=== PATIENT | male | born 1960 | race African-American/Black ===

== ENCOUNTER 2018-04-16 09:30 | Emergency (ER) | payer SELFPAY ==
--- NOTE | 2018-04-16 09:45 | ER Document Report ---
ED Medical Screen (RME) - General Chief Complaint: Flank Pain Stated Complaint: BACK PAIN Time Seen by Provider: 04/16/18 09:44 Mode of Arrival: Ambulatory Information source: Patient TRAVEL OUTSIDE OF THE [place] IN LAST 30 DAYS: No - HPI Patient complains to provider of: R flank pain Onset: Other - pt with c/o R flank pain for the past 4 days - Related Data Allergies/Adverse Reactions: No Known Allergies Allergy (Verified 04/16/18 09:44) Past Medical History Renal/ Medical History: Denies: Hx Peritoneal Dialysis Physical Exam - Vital signs Vitals: Temp Pulse Resp BP Pulse Ox 97.9 F 101 H 20 142/81 H 97 04/16/18 09:36 04/16/18 09:36 04/16/18 09:36 04/16/18 09:36 04/16/18 09:36 Course - Vital Signs Vital signs: Temp Pulse Resp BP Pulse Ox 97.9 F 101 H 20 142/81 H 97 04/16/18 09:36 04/16/18 09:36 04/16/18 09:36 04/16/18 09:36 04/16/18 09:36
--- NOTE | 2018-04-16 10:36 | RADIOLOGY REPORT (SQ) ---
EXAM DESCRIPTION: CT LTD RENAL STONE PROTOCOL ON COMPLETED DATE/TIME: 04/16/2018 10:21 am REASON FOR STUDY: R flank pain COMPARISON: None. TECHNIQUE: CT scan of the abdomen and pelvis performed without intravenous or oral contrast. Images reviewed with lung, soft tissue, and bone windows. Reconstructed coronal and sagittal MPR images revi ewed. All images stored on PACS. All CT scanners at this facility use dose modulation, iterative reconstruction, and/or weight based d osing when appropriate to reduce radiation dose to as low as reasonably achievable (ALARA). [facility]: Dose Right [facility]: CareDose [facility]: Dose Right [facility]: Teradose 4D [facility]: [employer] RADIATION DOSE: CT Rad equipment meets quality standard of care and radiation dose reduction techniq ues were employed. CTDIvol: 10.7 mGy. DLP: 540 mGy-cm.mGy. LIMITATIONS: None. FINDINGS: LOWER CHEST: No significant findings. No nodules or infiltrates. NON-CONTRASTED LIVER, SPLEEN, ADRENALS: Evaluation limited by lack of IV contrast. No identified sign ificant masses. PANCREAS: No masses. No peripancreatic inflammatory changes. GALLBLADDER: No identified stones by CT criteria. No inflammatory changes to suggest cholecystitis. RIGHT KIDNEY AND URETER: No suspicious masses. Assessment limited by lack of IV contrast. No signif icant calcifications. No hydronephrosis or hydroureter. LEFT KIDNEY AND URETER: No suspicious masses. Assessment limited by lack of IV contrast. No signifi cant calcifications. No hydronephrosis or hydroureter. AORTA AND RETROPERITONEUM: No aneurysm. No retroperitoneal masses or adenopathy. BOWEL AND PERITONEAL CAVITY: No obvious masses or inflammatory changes. No free fluid. APPENDIX: Normal. PELVIS, BLADDER, AND ABDOMINAL WALL:The urinary bladder is incompletely filled and therefore not well evaluated. No free fluid is seen in the pelvis. No masses. BONES: No significant findings. OTHER: No other significant finding. IMPRESSION: NO SIGNIFICANT OR ACUTE PROCESS IN THE ABDOMEN OR PELVIS. COMMENT: Quality ID # [id number]: Final reports with documentation of one or more dose reduction techniques (e.g., Automated exposure control, adjustment of the mA and/or kV according to patient size, use of iterative reconstruction technique) TECHNICAL DOCUMENTATION: JOB ID: [id number] [employer]- All Rights Reserved Reading location - IP/workstation name: [email or web address]
[2018-04-16 10:49] LABS: APPEARANCE,URINE SLIGHTLY-CLOUDY; BILIRUBIN,URINE NEGATIVE (NEGATIVE); COLOR,URINE YELLOW; GLUCOSE, URINE NEGATIVE (NEGATIVE); KETONES,URINE NEGATIVE (NEGATIVE); LEUKOCYTE ESTERASE,URINE NEGATIVE (NEGATIVE); NITRITE,URINE NEGATIVE (NEGATIVE); PROTEIN,URINE NEGATIVE (NEGATIVE); URINE SPECIFIC GRAVITY 1.019
[2018-04-16] MEDS ORDERED: CEFTRIAXONE INJ 250 MG VIAL IM ONE (11:17)
[2018-04-16] MEDS ORDERED: AZITHROMYCIN 250 MG TABLET PO ONE (11:17)
[2018-04-16] MEDS ORDERED: LIDOCAINE 1% INJ-PF (10 MG/ML) 30 ML SDV INJ ONE (11:17)
[2018-04-16] MEDS ORDERED: CYCLOBENZAPRINE HCL 10 MG TABLET PO ONE (11:18)
[2018-04-16] MEDS ORDERED: LIDOCAINE 5% (700 MG) TRANSDERMAL ADH..PATCH TP ONE (11:18)
--- NOTE | 2018-04-16 11:23 | ER Document Report ---
HPI - HPI Patient complains to provider of: Right flank pain Onset: Other - 4 days Onset/Duration: Persistent Quality of pain: Achy Pain Level: 4 Context: Patient presents complaining of four-day history of right flank pain. Patient denies any fever, nausea vomiting or diarrhea. Patient denies any urinary symptoms. Patient does report a recent new sexual partner and is concerned about the possibility of an STD and would like to be treated. Associated Symptoms: Other - Right flank pain. denies: Fever, Nausea, Vomiting Exacerbated by: Denies Relieved by: Denies Similar symptoms previously: No Recently seen / treated by doctor: No - ROS ROS below otherwise negative: Yes Systems Reviewed and Negative: Yes All other systems reviewed and negative - CONSTITUTIONAL Constitutional: DENIES: Fever, Chills - EENT EENT: DENIES: Sore Throat - CARDIOVASCULAR Cardiovascular: DENIES: Chest pain - RESPIRATORY Respiratory: DENIES: Trouble Breathing, Coughing - GASTROINTESTINAL Gastrointestinal: DENIES: Abdominal Pain, Nausea, Patient vomiting - URINARY Urinary: DENIES: Dysuria, Urgency - MUSCULOSKELETAL Musculoskeletal: REPORTS: Back Pain - DERM Skin Color: Normal Past Medical History - General Information source: Patient - Social History Smoking Status: Current Every Day Smoker Smoking Education Provided: Yes Frequency of alcohol use: None Drug Abuse: None Occupation: None Family History: Reviewed & Not Pertinent Patient has suicidal ideation: No Patient has homicidal ideation: No - Medical History Medical History: Negative Renal/ Medical History: Denies: Hx Peritoneal Dialysis Past Surgical History: Reports: Hx Orthopedic Surgery Vertical Provider Document - CONSTITUTIONAL Agree With Documented VS: Yes Exam Limitations: No Limitations General Appearance: WD/WN, No Apparent Distress - INFECTION CONTROL TRAVEL OUTSIDE OF THE [place] IN LAST 30 DAYS: No - HEENT HEENT: Atraumatic, Normocephalic - NECK Neck: Normal Inspection, Supple. negative: Lymphadenopathy-Left, Lymphadenopathy-Right - RESPIRATORY Respiratory: Breath Sounds Normal, No Respiratory Distress, Chest Non-Tender - CARDIOVASCULAR Cardiovascular: Regular Rate, Regular Rhythm, No Murmur - GI/ABDOMEN Gastrointestinal: Abdomen Soft, Abdomen Non-Tender, No Organomegaly, Normal Bowel Sounds. negative: Abdominal Guarding - BACK Back: CVA Tenderness-Right - MUSCULOSKELETAL/EXTREMETIES Musculoskeletal/Extremeties: MAEW, FROM - NEURO Level of Consciousness: Awake, Alert, Appropriate Motor/Sensory: No Motor Deficit - DERM Integumentary: Warm, Dry, No Rash Course - Re-evaluation Re-evalutation: 04/16/18 11:19 Patient denies any abdominal tenderness, nausea vomiting, diarrhea or fever. Patient is concerned about possible STD as he recently had a new sexual partner. Patient is requesting prophylactic treatment. CT scan reviewed, no concern for obstructive uropathy. Patient with small amount of red blood cells noted on urinalysis. Culture will be obtained as well as testing for gonorrhea and chlamydia. Patient encouraged to follow-up with a primary doctor to have a repeat urinalysis to follow-up on hematuria noted today. - Vital Signs Vital signs: Temp Pulse Resp BP Pulse Ox 97.9 F 101 H 20 142/81 H 97 04/16/18 09:36 04/16/18 09:36 04/16/18 09:36 04/16/18 09:36 04/16/18 09:36 - Laboratory Laboratory results interpreted by me: 04/16/18 10:06 Urine Blood SMALL H Urine Urobilinogen 2.0 H 04/16/18 11:20 Labs- Entire Visit 04/16/18 10:06 Urine Color YELLOW Urine Appearance SLIGHTLY-CLOUDY Urine pH 5.0 Ur Specific [place] 1.019 Urine Protein NEGATIVE Urine Glucose (UA) NEGATIVE Urine Ketones NEGATIVE Urine Blood SMALL H Urine Nitrite NEGATIVE Urine Bilirubin NEGATIVE Urine Urobilinogen 2.0 H Ur Leukocyte Esterase NEGATIVE Urine WBC (Auto) 2 Urine RBC (Auto) 2 U Hyaline Cast (Auto) 1 Urine Mucus (Auto) MANY Urine Ascorbic Acid NEGATIVE - Diagnostic Test Radiology reviewed: Reports reviewed Discharge - Discharge Clinical Impression: Right flank pain, Concern about STD in male without diagnosis Hematuria Qualifiers: Hematuria type: unspecified type Qualified Code(s): R31.9 - Hematuria, unspecified Condition: Stable Disposition: HOME, SELF-CARE Instructions: Azithromycin ([facility]), Flank Pain ([facility]), Hematuria ([facility]), Low Back Pain ([facility]), Rocephin ([facility]) Additional Instructions: Return immediately for any new or worsening symptoms Followup with your primary care provider, call tomorrow to make a followup appointment Your urinalysis showed a small amount of red blood cells in your urine. Follow- up with primary care provider to recheck this urine test on Thursday. Prescriptions: Cyclobenzaprine HCl [Flexeril 10 Mg Tablet] 10 mg PO TID #15 tablet Naproxen [Naprosyn 250 Nmg Tablet] 1 tab PO BID #14 tablet Forms: Smoking Cessation Education Referrals: [facility] [Provider Group] - Follow up as needed [facility] [Provider Group] - Follow up as needed
[2018-04-16 11:58] VITALS: BP 156/86
[2018-04-16 13:41] LABS: CHLAM PCR NOT DETECTED (NOT DETECT); GON PCR NOT DETECTED (NOT DETECT)
== END 2018-04-16 12:03 | disposition home or self-care (01) ==
LOC: ER 09:30
DX: R10.9 Unspecified abdominal pain (principal); R31.9 Hematuria, unspecified; Z20.2 Contact with and (suspected) exposure to infections with a predominantly sexual mode of transmission; F17.200 Nicotine dependence, unspecified, uncomplicated
CPT/HCPCS: 99284; 96372; 87086; 81001; 87491; 87591; 76380; J3490; J0696

== ENCOUNTER 2018-05-19 07:37 | Emergency (ER) | payer SELFPAY ==
[2018-05-19] MEDS ORDERED: ACYCLOVIR 800 MG TABLET PO ONE (09:05)
[2018-05-19] MEDS ORDERED: IBUPROFEN 600 MG TABLET PO ONE (09:06)
[2018-05-19 09:52] LABS: APPEARANCE,URINE SLIGHTLY-CLOUDY; BILIRUBIN,URINE NEGATIVE (NEGATIVE); GLUCOSE, URINE NEGATIVE (NEGATIVE); KETONES,URINE NEGATIVE (NEGATIVE); LEUKOCYTE ESTERASE,URINE NEGATIVE (NEGATIVE); NITRITE,URINE NEGATIVE (NEGATIVE); PROTEIN,URINE NEGATIVE (NEGATIVE); URINE SPECIFIC GRAVITY 1.025
[2018-05-19 09:56] LABS: COLOR,URINE YELLOW
--- NOTE | 2018-05-19 11:14 | ER Document Report ---
ED General - General Chief Complaint: Back Pain Stated Complaint: BACK PAIN Time Seen by Provider: 05/19/18 08:18 Notes: This is a 57-year-old male to emergency department chief complaint of right back pain. Also complaining of a rash on his right back. Began yesterday. Achy and burning. No other symptoms. TRAVEL OUTSIDE OF THE [place] IN LAST 30 DAYS: No - HPI Onset: Yesterday Onset/Duration: Gradual, Worse Quality of pain: Achy, Burning Severity: Moderate Pain Level: 2 Associated symptoms: None - Related Data Allergies/Adverse Reactions: No Known Allergies Allergy (Verified 05/19/18 07:38) Past Medical History - General Information source: Patient - Social History Smoking Status: Current Every Day Smoker Chew tobacco use (# tins/day): No Drug Abuse: None Lives with: Alone Family History: Reviewed & Not Pertinent Patient has suicidal ideation: No Patient has homicidal ideation: No Renal/ Medical History: Denies: Hx Peritoneal Dialysis Past Surgical History: Reports: Hx Orthopedic Surgery - left foot Review of Systems - Review of Systems Constitutional: denies: Fever, Malaise, Weakness EENT: denies: Throat pain, Difficulty swallowing, Mouth pain Cardiovascular: denies: Chest pain, Palpitations, Heart racing Respiratory: denies: Cough, Hurts to breathe, Short of breath, Wheezing Gastrointestinal: denies: Abdominal pain, Diarrhea, Nausea Genitourinary: denies: Burning, Dysuria, Discharge Musculoskeletal: See HPI, Back pain. denies: Joint pain Skin: See HPI, Rash Physical Exam - Vital signs Vitals: Temp Pulse Resp BP Pulse Ox 97.6 F 99 18 135/83 H 97 05/19/18 07:41 05/19/18 07:41 05/19/18 07:41 05/19/18 07:41 05/19/18 07:41 Interpretation: Normal - General General appearance: Appears well, Alert - HEENT Head: Normocephalic, Atraumatic Eyes: Normal Pupils: PERRL - Respiratory Respiratory status: No respiratory distress Chest status: Nontender Breath sounds: Normal Chest palpation: Normal - Cardiovascular Rhythm: Regular Heart sounds: Normal auscultation Murmur: No - Abdominal Inspection: Normal Distension: No distension Bowel sounds: Normal Tenderness: Nontender Organomegaly: No organomegaly - Back Back: Normal, Nontender - Skin Skin Temperature: Warm Skin Moisture: Dry Skin Color: Normal, Other - vesicular looking rash on the right posterior chest wall consistent with what you would see with shingles. Course - Re-evaluation Re-evalutation: 05/19/18 11:51 At this time we will treat as potential shingles. Urinalysis is negative. First dose of antivirals and anti-inflammatories given. Will discharge at this time in stable condition. - Vital Signs Vital signs: Temp Pulse Resp BP Pulse Ox 98.2 F 70 18 136/77 H 97 05/19/18 11:26 05/19/18 11:26 05/19/18 11:26 05/19/18 11:26 05/19/18 11:26 - Laboratory Laboratory results interpreted by me: 05/19/18 09:25 Urine Urobilinogen 4.0 H Discharge - Discharge Clinical Impression: Shingles rash Qualifiers: Herpes zoster complications: without complications Qualified Code(s): B02.9 - Zoster without complications Condition: Good Disposition: HOME, SELF-CARE Instructions: Shingles ([facility]) Prescriptions: Acyclovir 800 mg PO TID 7 Days #21 tablet Ibuprofen [Motrin 600 Mg Tablet] 600 mg PO TID 5 Days #15 tablet
[2018-05-19 11:27] VITALS: BP 136/77
== END 2018-05-19 11:29 | disposition home or self-care (01) ==
LOC: ER 07:37
DX: B02.9 Zoster without complications (principal); F17.200 Nicotine dependence, unspecified, uncomplicated
CPT/HCPCS: 99283; 81001; J3490

== ENCOUNTER 2018-06-22 10:33 | Emergency (ER) | payer OTHER ==
--- NOTE | 2018-06-22 11:02 | ER Document Report ---
ED Medical Screen (RME) - General Chief Complaint: Flank Pain Stated Complaint: ABDOMINAL/BACK PAIN Time Seen by Provider: 06/22/18 10:53 Mode of Arrival: Ambulatory Information source: Patient Notes: Patient is a 57-year-old male who presents emergency department with complaints of right-sided flank pain and back pain that is been present for the last 3 months. Patient states that it has been worse over the last 2 weeks. He describes the pain as a sharp and stabbing sensation. He states that occasionally it radiates to the left flank and left lower quadrant. He denies any alleviating or exacerbating factors. Patient states that he was seen in April for similar pain and started on Flexeril. Patient states that it minimized the pain but never completely resolved the pain. He states that he was seen again for similar pain in May and diagnosed with shingles. He was started on antivirals and anti-inflammatories. Patient states that once again it never completely resolved. No rash at this time. Patient denies any nausea, vomiting, diarrhea, constipation, testicular pain, penile discharge, melena, hematochezia. I have greeted and performed a rapid initial assessment of this patient. A comprehensive ED assessment and evaluation of the patient, analysis of test results and completion of the medical decision making process will be conducted by additional ED providers. PHYSICAL EXAMINATION: GENERAL: Well-appearing, well-nourished and in no acute distress. HEAD: Atraumatic, normocephalic. EYES: Pupils equal round extraocular movements intact, conjunctiva are normal. ENT: Nares patent NECK: Normal range of motion LUNGS: No respiratory distress Musculoskeletal: Normal range of motion NEUROLOGICAL: Normal speech, normal gait. PSYCH: Normal mood, normal affect. SKIN: Warm, Dry, normal turgor, no rashes or lesions noted. TRAVEL OUTSIDE OF THE [place] IN LAST 30 DAYS: No - Related Data Allergies/Adverse Reactions: No Known Allergies Allergy (Verified 05/19/18 07:38) Past Medical History - Social History Chew tobacco use (# tins/day): No Frequency of alcohol use: None Drug Abuse: None Renal/ Medical History: Denies: Hx Peritoneal Dialysis Past Surgical History: Reports: Hx Orthopedic Surgery - left foot Physical Exam - Vital signs Vitals: Temp Pulse Resp BP Pulse Ox 97.9 F 95 18 121/74 98 06/22/18 10:39 06/22/18 10:39 06/22/18 10:39 06/22/18 10:39 06/22/18 10:39 Course - Vital Signs Vital signs: Temp Pulse Resp BP Pulse Ox 97.9 F 95 18 121/74 98 06/22/18 10:39 06/22/18 10:39 06/22/18 10:39 06/22/18 10:39 06/22/18 10:39
--- NOTE | 2018-06-22 11:41 | ER Document Report ---
ED General - General Chief Complaint: Flank Pain Stated Complaint: ABDOMINAL/BACK PAIN Time Seen by Provider: 06/22/18 10:53 Mode of Arrival: Ambulatory Notes: 57-year-old dinorah presents to the ER complaining of right flank pain. Patient stated he has had this for the last 3 months. He does have a history of shingles and since the shingles it is been hurting him. He denies any nausea vomiting denies diarrhea. Denies any chest pain or shortness of breath. States is the same pain he is been feeling since the shingles. He describes a sort of an aching pins and needles type sensation. He has trouble sleeping at night. He denies any additional falls or trauma. Denies hematuria or dysuria. Denies night sweats cough hemoptysis or gland swelling. TRAVEL OUTSIDE OF THE [place] IN LAST 30 DAYS: No - Related Data Allergies/Adverse Reactions: No Known Allergies Allergy (Verified 06/22/18 11:01) Past Medical History - General Information source: Patient - Social History Smoking Status: Current Every Day Smoker Chew tobacco use (# tins/day): No Frequency of alcohol use: None Drug Abuse: None Family History: Reviewed & Not Pertinent Patient has suicidal ideation: No Patient has homicidal ideation: No Renal/ Medical History: Denies: Hx Peritoneal Dialysis Past Surgical History: Reports: Hx Orthopedic Surgery - left foot Review of Systems - Review of Systems Constitutional: denies: Chills, Fever Cardiovascular: denies: Chest pain, Dyspnea, Edema Respiratory: denies: Short of breath Gastrointestinal: denies: Nausea, Vomiting Genitourinary: Flank pain. denies: Dysuria, Hematuria Skin: Lesions Neurological/Psychological: denies: Headaches, Numbness -: Yes All other systems reviewed and negative Physical Exam - Vital signs Vitals: Temp Pulse Resp BP Pulse Ox 97.9 F 95 18 121/74 98 06/22/18 10:39 06/22/18 10:39 06/22/18 10:39 06/22/18 10:39 06/22/18 10:39 - Notes Notes: GENERAL_APPEARANCE: well_nourished, alert, cooperative, no_acute_distress, no_ obvious_discomfort. VITALS: reviewed, see vital signs table. HEAD: no_swelling\tenderness on the head. EYES: PERRL, EOMI, conjunctiva_clear. NOSE: no_nasal_discharge. MOUTH: (-)decreased moisture. THROAT: no_throat_inflammation, no_airway_obstruction. no_lymphadenopathy NECK: supple, no_neck_tenderness, (-)thyromegaly. BACK: Patient has discomfort in a dermatomal distribution of the right CVA area extending around to the right upper and midportion of the abdomen there are healing vesicles. They are very hard to see unless you really look at the skin. CHEST_WALL: no_chest_tenderness. LUNGS: no_wheezing, no_rales, no_rhonchi, (-)accessory muscle use, good air exchange bilateral. HEART: normal_rate, normal_rhythm, normal_S1, normal_S2, (-)S3, (-)S4, no_ murmur, no_rub. ABDOMEN: normal_BS, soft, no_abd_tenderness, (-)guarding, (-)rebound, no_ organomegaly, no_abd_masses. EXTREMITIES: good pulses in all_extremities, no_swelling\tenderness in the extremities, no_edema. SKIN: warm, dry, good_color, no_rash. MENTAL_STATUS: speech_clear, oriented_X_3, normal_affect, responds_ appropriately to questions. NEURO: Neg Motor or Sensory Deficits on exam, CN 2-12 intact, DTR 2+ symmetric x 4, No cerbellar signs Course - Re-evaluation Re-evalutation: 06/22/18 11:41 57-year-old male presents with some right-sided flank pain this is likely postherpetic neuralgia. His abdomen is soft and supple there is no rebound or guarding. Some lab work was placed in triage. We will start him on some gabapentin to help with this especially at night. I explained to him that postherpetic neuralgia can last for a long time. 06/22/18 12:56 Lab work looks within acceptable limits. No additional imaging is needed. We will start the patient on some gabapentin and try to estate planning counselor him on postherpetic neuralgia and that it may last a while. - Vital Signs Vital signs: Temp Pulse Resp BP Pulse Ox 97.9 F 95 18 121/74 98 06/22/18 10:39 06/22/18 10:39 10/16/18 10:39 06/22/18 10:39 06/22/18 10:39 - Laboratory Result Diagrams: 06/22/18 11:05 06/22/18 11:05 Laboratory results interpreted by me: 06/22/18 06/22/18 06/22/18 11:05 11:05 11:05 WBC 11.3 H RDW 16.2 H Total Protein 9.5 H Urine Urobilinogen 2.0 H Discharge - Discharge Clinical Impression: Postherpetic neuralgia Condition: Good Disposition: HOME, SELF-CARE Instructions: Shingles ([facility]) Additional Instructions: You have a condition called postherpetic neuralgia. After an episode of shingles you may still have recurrent pain in the area of the shingles for up to a year. We will give you some medicine to help it however it will not take the pain away hopefully it will resolve but there are a very small percentage of people that have recurrent pain after a year and this becomes a chronic pain issue. Please follow-up with your family doctor for further care Prescriptions: Gabapentin 300 mg PO TID #30 capsule
[2018-06-22 11:47] LABS: ABSOLUTE BASOPHILS # (AUTO) 0.1 10^3/uL (0.0-0.2); ABSOLUTE EOSINOPHILS # (AUTO) 0.1 10^3/uL (0.0-0.6); ABSOLUTE LYMPHOCYTES (AUTO) 4.5 10^3/uL (0.5-4.7); ABSOLUTE MONOCYTES (AUTO) 0.9 10^3/uL (0.1-1.4); ABSOLUTE NEUT (AUTO) 5.8 10^3/uL (1.7-8.2); BASOPHILS % (AUTO) 0.7 % (0-2); EOSINOPHILS % (AUTO) 0.7 % (0-6); HEMATOCRIT 42.2 % (37.9-51.0); HEMOGLOBIN 14.5 g/dL (13.5-17.0); LYMPHOCYTES % (AUTO) 39.3 % (13-45); MEAN CORPUSCULAR HEMOGLOBIN 29.2 pg (27.0-33.4); MEAN CORPUSCULAR HGB CONC 34.3 g/dL (32.0-36.0); MEAN CORPUSCULAR VOLUME 85 fl (80-97); MONOCYTES % (AUTO) 8.3 % (3-13); PLATELET COUNT 430 10^3/uL (150-450); RED BLOOD COUNT 4.95 10^6/uL (4.35-5.55); RED CELL DISTRIBUTION WIDTH 16.2 % (11.5-14.0); TOTAL CELLS COUNTED % (AUTO) 100 %; WHITE BLOOD COUNT 11.3 10^3/uL (4.0-10.5)
[2018-06-22 11:59] LABS: ALANINE AMINOTRANSFERASE 24 U/L (21-72); ALBUMIN 4.9 g/dL (3.5-5.0); ALKALINE PHOSPHATASE 68 U/L (38-126); ANION GAP 13 (5-19); ASPARTATE AMINO TRANSFERASE 36 U/L (17-59); BILIRUBIN,DIRECT 0.4 mg/dL (0.0-0.4); BILIRUBIN,TOTAL 0.6 mg/dL (0.2-1.3); BLOOD UREA NITROGEN 9 mg/dL (7-20); CALCIUM 10.2 mg/dL (8.4-10.2); CARBON DIOXIDE 26 mmol/L (22-30); CHLORIDE 104 mmol/L (98-107); GLUCOSE 102 mg/dL (75-110); LIPASE 44.2 U/L (23-300); POTASSIUM 4.1 mmol/L (3.6-5.0); SODIUM 142.9 mmol/L (137-145); TOTAL PROTEIN 9.5 g/dL (6.3-8.2)
[2018-06-22 12:13] LABS: APPEARANCE,URINE SLIGHTLY-CLOUDY; BILIRUBIN,URINE NEGATIVE (NEGATIVE); CALCIUM OXALATE CRYSTALS,URINE RARE /HPF; COLOR,URINE AMBER; GLUCOSE, URINE NEGATIVE (NEGATIVE); KETONES,URINE NEGATIVE (NEGATIVE); LEUKOCYTE ESTERASE,URINE NEGATIVE (NEGATIVE); NITRITE,URINE NEGATIVE (NEGATIVE); PROTEIN,URINE NEGATIVE (NEGATIVE); URINE SPECIFIC GRAVITY 1.028
[2018-06-22 13:03] VITALS: BP 111/82
== END 2018-06-22 13:05 | disposition home or self-care (01) ==
LOC: ER 10:33
DX: B02.29 Other postherpetic nervous system involvement (principal); F17.200 Nicotine dependence, unspecified, uncomplicated
CPT/HCPCS: 36415; 80053; 81001; 83690; 85025; 99284

== ENCOUNTER → 2018-08-06 | Outpatient (CLI) | payer OTHER ==
[2018-08-06 13:02] LABS: CHOLESTEROL 149.03 mg/dL (0-200); TRIGLYCERIDES 87 mg/dL (<150)
[2018-08-06 13:13] LABS: DIRECT LDL 109 mg/dL (<100)
== END ==
LOC: CCC 12:13
DX: Z00.00 Encounter for general adult medical examination without abnormal findings (principal)
CPT/HCPCS: 36415; 80061; 83036; 84443

== ENCOUNTER → 2019-06-17 | Outpatient (CLI) | payer OTHER ==
[2019-06-17 09:21] LABS: ABSOLUTE EOSINOPHILS # (AUTO) 0.1 10^3/uL (0.0-0.6); ABSOLUTE LYMPHOCYTES (AUTO) 3.9 10^3/uL (0.5-4.7); ABSOLUTE MONOCYTES (AUTO) 0.7 10^3/uL (0.1-1.4); ABSOLUTE NEUT (AUTO) 7.4 10^3/uL (1.7-8.2); BASOPHILS % (AUTO) 0.3 % (0-2); EOSINOPHILS % (AUTO) 0.4 % (0-6); HEMATOCRIT 40.2 % (37.9-51.0); HEMOGLOBIN 13.3 g/dL (13.5-17.0); LYMPHOCYTES % (AUTO) 32.2 % (13-45); MEAN CORPUSCULAR HEMOGLOBIN 29.6 pg (27.0-33.4); MEAN CORPUSCULAR HGB CONC 33.1 g/dL (32.0-36.0); MEAN CORPUSCULAR VOLUME 90 fl (80-97); MONOCYTES % (AUTO) 6.1 % (3-13); PLATELET COUNT 408 10^3/uL (150-450); RED BLOOD COUNT 4.49 10^6/uL (4.35-5.55); RED CELL DISTRIBUTION WIDTH 15.9 % (11.5-14.0); TOTAL CELLS COUNTED % (AUTO) 100 %; WHITE BLOOD COUNT 12.2 10^3/uL (4.0-10.5)
[2019-06-17 09:47] LABS: ALBUMIN 4.7 g/dL (3.5-5.0); ALKALINE PHOSPHATASE 63 U/L (38-126); ANION GAP 12 (5-19); ASPARTATE AMINO TRANSFERASE 22 U/L (17-59); BILIRUBIN,DIRECT 0.3 mg/dL (0.0-0.4); BILIRUBIN,TOTAL 0.4 mg/dL (0.2-1.3); BLOOD UREA NITROGEN 9 mg/dL (7-20); CALCIUM 10.1 mg/dL (8.4-10.2); CARBON DIOXIDE 29 mmol/L (22-30); CHLORIDE 100 mmol/L (98-107); CHOLESTEROL 155.31 mg/dL (0-200); GLUCOSE 90 mg/dL (75-110); POTASSIUM 4.3 mmol/L (3.6-5.0); TOTAL PROTEIN 8.3 g/dL (6.3-8.2); TRIGLYCERIDES 90 mg/dL (<150)
[2019-06-17 09:59] LABS: DIRECT LDL 110 mg/dL (<100)
== END ==
LOC: CCC 08:31
DX: Z00.00 Encounter for general adult medical examination without abnormal findings (principal)
CPT/HCPCS: 36415; 80053; 80061; 83036; 84153; 84443; 85025